=== PATIENT | male | born 1990 | race Caucasian/White ===

== ENCOUNTER 2017-04-03 20:24 | Emergency (ER) | payer BC ==
--- NOTE | 2017-04-03 20:44 | EDM.PDOC ---
ED HPI GENERAL MEDICAL PROBLEM - General Chief Complaint: ENT Problem Stated Complaint: PT HAS NOSE BLEED Time Seen by Provider: 04/03/17 20:40 Source of Information: Reports: Patient - History of Present Illness INITIAL COMMENTS - FREE TEXT/NARRATIVE: HISTORY AND PHYSICAL: History of present illness: [Patient presents with epistaxis, he has been having issues over the last week with nosebleeds He was visiting family in [place] on Sunday and cautery was performed], just prior to arrival epistaxis on the right return fair amount of bleeding and clot formation No fever nausea vomiting chills sweats Review of systems: As per history of present illness and below otherwise all systems reviewed and negative. Past medical history: As per history of present illness and as reviewed below otherwise noncontributory. Surgical history: As per history of present illness and as reviewed below otherwise noncontributory. Social history: No reported history of drug or alcohol abuse. Family history: As per history of present illness and as reviewed below otherwise noncontributory. Physical exam: HEENT: Atraumatic, normocephalic, pupils reactive, negative for conjunctival pallor or scleral icterus, mucous membranes moist, throat clear, neck supple, nontender, trachea midline. Patient does have sinus tenderness on the right although epistaxis is from the left I do not see any area of cautery from Sunday , large clots were removed Lungs: Clear to auscultation, breath sounds equal bilaterally, chest nontender. Heart: S1S2, regular, negative for clicks, rubs, or JVD. Abdomen: Soft, nondistended, nontender. Negative for masses or hepatosplenomegaly. Negative for costovertebral tenderness. Pelvis: Stable nontender. Genitourinary: Deferred. Rectal: Deferred. Extremities: Atraumatic, negative for cords or calf pain. Neurovascular unremarkable. Neuro: Awake, alert, oriented. Cranial nerves II through XII unremarkable. Cerebellum unremarkable. Motor and sensory unremarkable throughout. Exam nonfocal. Diagnostics: CBC, INR Therapeutics: []Rapid Rhino placed with 7 mL of inflation Amoxicillin 875 by mouth twice a day #20 no refill ENT referral for a rapid Rhino removal in 48 hours and continued management Impression: []Epistaxis controlled Sinusitis on right maxillary sinus Definitive disposition and diagnosis as appropriate pending reevaluation and review of above. Left Elbow Pain Score (Numeric/FACES): 1 - Related Data Allergies Allergy/AdvReac Type Severity Reaction Status Date / Time No Known Allergies Allergy Verified 04/03/17 20:35 Home Meds: Home Meds Aspirin 81 mg PO DAILY 04/03/17 [History] Lisinopril [Prinivil] 10 mg PO DAILY 04/03/17 [History] Metoprolol Succinate [Toprol XL] 100 mg PO BEDTIME 04/03/17 [History] ED ROS GENERAL - Review of Systems Review Of Systems: ROS reveals no pertinent complaints other than HPI. ED EXAM, GENERAL - Physical Exam Exam: See Below Course - Vital Signs Last Recorded V/S: Last Vital Signs Temp 36.1 C 04/03/17 20:37 Pulse 102 H 04/03/17 20:37 Resp 16 04/03/17 20:37 BP 151/97 H 04/03/17 20:37 Pulse Ox 98 04/03/17 20:37 - Orders/Labs/Meds Labs: Laboratory Tests 04/03/17 04/03/17 Range/Units 20:53 20:53 WBC 9.92 (4.0-11.0) K/uL RBC 4.95 (4.50-5.90) M/uL Hgb 14.5 (13.0-17.0) g/dL Hct 41.3 (38.0-50.0) % MCV 83.4 (80.0-98.0) fL MCH 29.3 (27.0-32.0) pg MCHC 35.1 (31.0-37.0) g/dL RDW Std Deviation 40.0 (28.0-62.0) fl RDW Coeff of Elizabeth 13 (11.0-15.0) % Plt Count 237 (150-400) K/uL MPV 10.90 (7.40-12.00) fL Add Manual Diff YES Neutrophils % (Manual) 58 (48.0-80.0) % Band Neutrophils % 3 % Lymphocytes % (Manual) 26 (16.0-40.0) % Monocytes % (Manual) 4 (0.0-15.0) % Eosinophils % (Manual) 2 (0.0-7.0) % Metamyelocytes % 7 % Nucleated RBC % 0.0 /100WBC Absolute Seg Neuts 5.8 Band Neutrophils # 0.3 Lymphocytes # (Manual) 2.6 Monocytes # (Manual) 0.4 Eosinophils # (Manual) 0.2 Absolute Metamyelocyte 0.7 Nucleated RBCs # 0 K/uL INR 0.95 (0.86-1.11) Departure - Departure Time of Disposition: 21:30 Disposition: Home, Self-Care 01 Condition: Good Clinical Impression: Epistaxis, Sinusitis - Discharge Information Forms: ED Department Discharge Additional Instructions: Medication as prescribed Return if symptoms persist or worsen or new concerning symptoms develop Follow-up with ENT and ER referral for 48 hours will be provided [facility] - ENT [address] [place] [id number] The following information is given to patients seen in the emergency department who are being discharged to home. This information is to outline your options for follow-up care. We provide all patients seen in our emergency department with a follow-up referral. The need for follow-up, as well as the timing and circumstances, are variable depending upon the specifics of your emergency department visit. If you don't have a primary care physician on staff, we will provide you with a referral. We always advise you to contact your personal physician following an emergency department visit to inform them of the circumstance of the visit and for follow-up with them and/or the need for any referrals to a consulting specialist. The emergency department will also refer you to a specialist when appropriate. This referral assures that you have the opportunity for follow-up care with a specialist. All of these measure are taken in an effort to provide you with optimal care, which includes your follow-up. Under all circumstances we always encourage you to contact your private physician who remains a resource for coordinating your care. When calling for follow-up care, please make the office aware that this follow-up is from your recent emergency room visit. If for any reason you are refused follow-up, please contact the [facility] emergency department at and asked to speak to the emergency department charge nurse.
== END 2017-04-03 21:45 | disposition home or self-care (01) ==
LOC: MW.ED 20:24
DX: R04.0 Epistaxis (principal); J32.9 Chronic sinusitis, unspecified; Z79.82 Long term (current) use of aspirin; Z79.899 Other long term (current) drug therapy
CPT/HCPCS: 30901; 36415; 85025; 85610; 99283